=== PATIENT | female | born 1965 | race Asian ===

== ENCOUNTER 2018-03-23 04:41 | Emergency (ER) | payer OTHER ==
[2018-03-23 04:59] VITALS: BP 163/70
[2018-03-23] MEDS ORDERED: LIDOCAINE PATCH 5% TOP STA (05:13)
[2018-03-23] MEDS ORDERED: KETOROLAC 30 MG/ML VIAL IM STA (05:13)
--- NOTE | 2018-03-23 05:16 | ED Physician Documentation ---
History of Present Illness - Stated complaint Stated Complaint: LT FLANK PAIN - Chief complaint Chief Complaint: General - History obtained from History obtained from: Patient - History of Present Illness Timing: How many weeks ago (1) Pain level max: 10 Pain level now: 10 Improved by: nothing Worsened by: palpation, movement - Additonal information Additional information: Patient is a 52-year-old female who presents to the emergency department with left flank pain for the past week. States that she has been taking Diclofenac at home without relief. She was seen at her PCPs office and diagnosed with shingles. Started on Valtrex. Here because the pain is uncontrolled. No fevers. No vomiting. No diarrhea or constipation. No numbness or tingling. Does not recall any injuries. No loss of bowel or bladder control. Does not use IV drugs. Review of Systems Constitutional: denies: Fever, Chills GI: denies: Abdominal Pain, Vomiting, Diarrhea : denies: Dysuria, Incontinent, Hematuria, Discharge Skin: denies: Rash Musculoskeletal: denies: Neck pain Neurologic: denies: Focal weakness, Numbness PD PAST MEDICAL HISTORY - Present Medications Home Medications: Ambulatory Orders Medication Instructions Recorded Confirmed Hydrocodone/Acetaminophen 1 - 2 each PO Q6H PRN #14 tablet 03/23/18 [Hydrocodon-Acetaminophen 5-325] Lidocaine Patch 5% [Lidoderm Patch] 1 patch TOP DAILY PRN #10 patch 03/23/18 - Allergies Allergies/Adverse Reactions: Allergies Allergy/AdvReac Type Severity Reaction Status Date / Time aspirin AdvReac Unknown Verified 03/23/18 04:59 PD ED PE NORMAL - Vitals Vital signs reviewed: Yes - General General: Alert and oriented X 3, No acute distress - HEENT HEENT: Moist mucous membranes - Neck Neck: Supple, no meningeal sign - Cardiac Cardiac: RRR - Respiratory Respiratory: No respiratory distress, Clear bilaterally - Abdomen Abdomen: Soft, Non tender, Non distended - Back Back: No spinal TTP (No midline tenderness to palpation or percussion) - Derm Derm: Warm and dry, Other (Slight vesicular rash to the left flank. This appears dermatomal and coincides with her pain) - Extremities Extremities: No edema, No calf tenderness / cord - Neuro Neuro: Alert and oriented X 3 Results - Vitals Vitals: Vital Signs - 24 hr 03/23/18 04:56 Temperature 36.6 C Heart Rate 78 Respiratory 18 Rate Blood Pressure 163/70 H O2 Saturation 99 Oxygen O2 Source Room air - Labs Labs: Laboratory Tests 03/23/18 05:10 Urine Color YELLOW Urine Clarity HAZY Urine pH 7.5 Ur Specific [place] 1.015 Urine Protein NEGATIVE Urine Glucose (UA) NEGATIVE Urine Ketones NEGATIVE Urine Occult Blood NEGATIVE Urine Nitrite NEGATIVE Urine Bilirubin NEGATIVE Urine Urobilinogen 0.2 (NORMAL) Ur Leukocyte Esterase TRACE H Urine RBC 0-5 Urine WBC 4-5 Ur Squamous Epith Cells MOD Squamous H Amorphous Sediment Moderate Urine Bacteria Few Ur Microscopic Review INDICATED Urine Culture Comments NOT INDICATED PD MEDICAL DECISION MAKING - ED course Complexity details: considered differential, d/w patient ED course: Patient is a 52-year-old female with what appears to be left flank shingles. Lidoderm patch was applied and Toradol given. She is driving home tonight. She is currently on valacyclovir. I will add pain medication for her. We will have her follow-up with her doctor for further evaluation and care. Patient counseled regarding signs and symptoms for which I believe and urgent re- evaluation would be necessary. Patient with good understanding of and agreement to plan and is comfortable going home at this time This document was made in part using voice recognition software. While efforts are made to proofread this document, sound alike and grammatical errors may occur. - Sepsis Event Vital Signs: Vital Signs - 24 hr 03/23/18 04:56 Temperature 36.6 C Heart Rate 78 Respiratory 18 Rate Blood Pressure 163/70 H O2 Saturation 99 Oxygen O2 Source Room air Departure - Departure Disposition: 01 Home, Self Care Clinical Impression: Shingles Qualifiers: Herpes zoster complications: without complications Qualified Code(s): B02.9 - Zoster without complications Condition: Good Instructions: ED Shingles Follow-Up: your,doctor in 3 days [Other] Prescriptions: Hydrocodone/Acetaminophen [Hydrocodon-Acetaminophen 5-325] 1 - 2 each PO Q6H PRN #14 tablet PRN Reason: pain Lidocaine Patch 5% [Lidoderm Patch] 1 patch TOP DAILY PRN #10 patch PRN Reason: pain Comments: Continue the valacyclovir at home. Return if you worsen. Follow-up with your doctor for further care. This pain may last for several weeks. Do not drink alcohol or drive while on narcotic pain medicine. Note that many narcotic pain relievers also contain tylenol/acetaminophen. Please ensure that your total dose of acetaminophen from all sources does not exceed 3 grams (3000mg) per day. You may constipated on this medication, take a stool softener such as "Colace" twice a day while you are on it. Also recommend a bymd-izl-[id number] laxative such as senna or MiraLAX any day that you do not have a bowel movement. If you received narcotic pain medication in the emergency department, do not drive or operate machinery for the next 24 hours.
[2018-03-23 05:23] LABS: BILIRUBIN,URINE NEGATIVE (NEGATIVE); GLUCOSE, URINE (UA) NEGATIVE (NEGATIVE); KETONES,URINE (UA) NEGATIVE (NEGATIVE); LEUKOCYTE ESTERASE, URINE TRACE (NEGATIVE); NITRITE,URINE NEGATIVE (NEGATIVE); OCCULT BLOOD,URINE NEGATIVE (NEGATIVE); PH,URINE 7.5 PH (5.0-7.5); PROTEIN,URINE NEGATIVE (NEGATIVE); UROBILINOGEN,URINE 0.2 (NORMAL) E.U./dL (NORMAL)
[2018-03-23 05:25] LABS: CLARITY,URINE HAZY (CLEAR)
[2018-03-23 05:32] LABS: AMORPHOUS SEDIMENT,UR Moderate /LPF; BACTERIA,URINE Few /HPF (None Seen); RBC,URINE 0-5 /HPF (0-5); SQUAMOUS EPITHELIAL CELL,UR MOD Squamous (<= Few)
== END 2018-03-23 05:55 | disposition home or self-care (01) ==
LOC: ED 04:41
DX: B02.9 Zoster without complications (principal)
CPT/HCPCS: 81001; 96372; 99283; A9270; 81003; 87086

== ENCOUNTER 2019-08-25 11:35 | Emergency (ER) | payer BC ==
--- NOTE | 2019-08-25 13:29 | ED Physician Documentation ---
History of Present Illness - Stated complaint Stated Complaint: BURN TO RT ARM - Chief complaint Chief Complaint: Wound - History obtained from History obtained from: Patient - History of Present Illness Timing: Today Pain level max: 0 Pain level now: 0 - Additonal information Additional information: 54-year-old female states that she burned her right forearm approximately 2 weeks ago on a rice cooker. Since that time she has been covering it heavily and antibiotic ointment and keeping it covered at all times. There is now a rash, it is red and itchy. She came in for evaluation. No fevers. Nothing makes it better or worse. Tetanus up-to-date. 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 : None HEENT: None Psych: None Musculoskeletal: None Derm: None - Past Surgical History Past Surgical History: Yes General: Cholecystectomy Ortho: Other - Present Medications Home Medications: Ambulatory Orders Medication Instructions Recorded Confirmed Albuterol Sulfate [Proventil Hfa 1 - 2 puffs INH Q4H PRN 08/25/19 08/25/19 Inhaler] Cephalexin [Keflex] 500 mg PO Q6H #28 capsule 08/25/19 Cetirizine [ZyrTEC] 10 mg PO DAILY 08/25/19 08/25/19 - Allergies Allergies/Adverse Reactions: Allergies Allergy/AdvReac Type Severity Reaction Status Date / Time aspirin AdvReac Unknown Verified 08/25/19 11:50 - Social History Does the pt smoke?: No Smoking Status: Never smoker Does the pt drink ETOH?: Yes Does the pt have substance abuse?: No - Immunizations Immunizations are current?: Yes - POLST Patient has POLST: No PD ED PE NORMAL - Vitals Vital signs reviewed: Yes - General General: Alert and oriented X 3, No acute distress - HEENT HEENT: Moist mucous membranes - Neck Neck: Supple, no meningeal sign - Cardiac Cardiac: RRR, Strong equal pulses - Respiratory Respiratory: No respiratory distress, Clear bilaterally - Abdomen Abdomen: Soft, Non tender, Non distended - Derm Derm: Warm and dry - Extremities Extremities: Other (Right forearm with mild erythema from the wrist to near the antecubital fossa. There is a raised rash in the middle of this that approximately 3 x 4 cm. There is serous drainage.) - Neuro Neuro: Alert and oriented X 3 - Psych Psych: Normal mood, Normal affect Results - Vitals Vitals: Vital Signs - 24 hr 08/25/19 11:46 Temperature 36 C L Heart Rate 93 Respiratory 18 Rate Blood Pressure 158/97 H O2 Saturation 98 Oxygen O2 Source Room air PD MEDICAL DECISION MAKING - ED course Complexity details: considered differential, d/w patient ED course: Patient appears to have a contact dermatitis and maceration of the skin from keeping the area constantly covered. Recommend that she stop using the antibiotic ointment. Will place her on oral antibiotics. We need to allow the area to dry to the open air. There may be a secondary cellulitic component. Will place on oral antibiotics for this. Warnings of infection and instructions on wound care given at bedside. Also counseled on how to minimize scarring. Patient counseled regarding signs and symptoms for which I believe and urgent re-evaluation would be necessary. Patient with good understanding of and agreement to plan and is comfortable going home at this time This document was made in part using voice recognition software. While efforts are made to proofread this document, sound alike and grammatical errors may occur. Departure - Departure Disposition: 01 Home, Self Care Clinical Impression: Thermal burn Cellulitis Qualifiers: Site of cellulitis: unspecified site Qualified Code(s): L03.90 - Cellulitis, unspecified Condition: Good Instructions: ED Burn Wound Check FU Infec Follow-Up: your,doctor in 1 week for wound check [Other] Prescriptions: Cephalexin [Keflex] 500 mg PO Q6H #28 capsule Comments: Return if you worsen. Follow up with your doctor in 1 week for a recheck. Do not apply any ointment to the area. Keep the wound uncovered.
[2019-08-25 13:38] VITALS: BP 142/86
== END 2019-08-25 13:38 | disposition home or self-care (01) ==
LOC: ED 11:35
DX: T22.111A Burn of first degree of right forearm, initial encounter (principal); L03.113 Cellulitis of right upper limb; X13.1XXA Other contact with steam and other hot vapors, initial encounter; Y93.G3 Activity, cooking and baking
CPT/HCPCS: 99282; 99284

== ENCOUNTER 2021-11-29 15:42 | Emergency (ER) | payer SELFPAY ==
[2021-11-29 15:54] VITALS: BP 131/71
[2021-11-29] MEDS ORDERED: PROMETHAZINE INJ 25 MG in SODIUM CHLORIDE 0.9% 50 ML IV STA (15:55)
[2021-11-29] MEDS ORDERED: SODIUM CHLORIDE 0.9% 1,000 ML IV STA (15:55)
[2021-11-29] MEDS ORDERED: KETOROLAC 30 MG/ML VIAL IVP STA (15:55)
--- NOTE | 2021-11-29 16:24 | ED Physician Documentation ---
PD HPI HEADACHE - Stated complaint Stated Complaint: HBP/HEADACHE/DIZZY/VOMIT - Chief complaint Chief Complaint: Neuro - History obtained from History obtained from: Patient - Additional information Additional information: The patient comes to the emergency department chief complaint of headache. She feels like she is having a migraine, since going off of her antihypertensives last week over concerns about potential side effects. She got back on her antihypertensives and blood pressure is now better, but she still has a headache. No nausea or vomiting. No neurologic changes. No fevers or chills. No other complaints at this time. Review of Systems Ten Systems: 10 systems reviewed and negative Constitutional: reports: Reviewed and negative Eyes: reports: Reviewed and negative Ears: reports: Reviewed and negative Nose: reports: Reviewed and negative Throat: reports: Reviewed and negative Cardiac: reports: Reviewed and negative Respiratory: reports: Reviewed and negative GI: reports: Reviewed and negative : reports: Reviewed and negative Skin: reports: Reviewed and negative Musculoskeletal: reports: Reviewed and negative Neurologic: reports: Headache Psychiatric: reports: Reviewed and negative Endocrine: reports: Reviewed and negative Immunocompromised: reports: Reviewed and negative PD PAST MEDICAL HISTORY - Past Medical History Cardiovascular: None Respiratory: Asthma Neuro: None Endocrine/Autoimmune: None GI: None [employer]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 : None HEENT: None Psych: None Musculoskeletal: None Derm: None - Past Surgical History Past Surgical History: Yes General: Cholecystectomy Ortho: Other - Present Medications Home Medications: Ambulatory Orders Medication Instructions Recorded Confirmed Albuterol Sulfate [Proventil Hfa 1 - 2 puffs INH Q4H PRN 08/25/19 08/25/19 Inhaler] Cetirizine [ZyrTEC] 10 mg PO DAILY 08/25/19 08/25/19 cephALEXin [Keflex] 500 mg PO Q6H #28 capsule 08/25/19 - Allergies Allergies/Adverse Reactions: Allergies Allergy/AdvReac Type Severity Reaction Status Date / Time aspirin AdvReac Unknown Verified 11/29/21 15:53 - Social History Does the pt smoke?: No Smoking Status: Never smoker Does the pt drink ETOH?: Yes Does the pt have substance abuse?: No - Immunizations Immunizations are current?: Yes - POLST Patient has POLST: No PD ED PE NORMAL - Vitals Vital signs reviewed: Yes - General General: Alert and oriented X 3, No acute distress, Well developed/nourished - HEENT HEENT: Atraumatic, PERRL, EOMI, Moist mucous membranes - Neck Neck: Supple, no meningeal sign - Cardiac Cardiac: RRR, No murmur - Respiratory Respiratory: No respiratory distress, Clear bilaterally - Abdomen Abdomen: Soft, Non tender, Non distended - Derm Derm: Normal color, Warm and dry, No rash - Extremities Extremities: No deformity, No edema - Neuro Neuro: Alert and oriented X 3, talend developer 2-12 intact, No motor deficit, No sensory deficit, Normal speech - Psych Psych: Normal mood, Normal affect Results - Vitals Vitals: Vital Signs - 24 hr 11/29/21 15:47 Temperature 36.3 C L Heart Rate 98 Respiratory 14 Rate Blood Pressure 131/71 H O2 Saturation 98 Oxygen O2 Source Room air PD MEDICAL DECISION MAKING - ED course Complexity details: considered differential, d/w patient ED course: Patient was treated symptomatically for her headache. She had no evidence of an emergent condition and her blood pressure was actually normal here. We have discussed the need to stay on the meds and the need to follow-up with her primary care physician for any concerns about her regular medications and po tential side effects. We discussed the usual indications for return Departure - Departure Clinical Impression: Headache Qualifiers: Headache type: unspecified Headache chronicity pattern: acute headache Intractability: not intractable Qualified Code(s): R51.9 - Headache, unspecified Condition: Stable Instructions: ED Cephalgia Unspecified Comments: Today your blood pressure was normal. Please continue on your blood pressure medications. It is much better to keep your blood Pressure under control then to stop the medicine suddenly and put yourself at risk for a stroke. You can always make an appointment with your primary doctor if you have concerns about potential side effects.
[2021-11-29] MEDS ORDERED: MAG HYDROX/AL HYDROX/SIMETH 30 ML UDC ONE (17:03)
== END 2021-11-29 16:27 | disposition home or self-care (01) ==
LOC: ED 15:42
DX: R51.9 Headache, unspecified (principal)
CPT/HCPCS: 99282; 99284; A9270; J7040